=== PATIENT | female | born 1950 | race Caucasian/White ===

== ENCOUNTER 2025-08-27 07:08 | Observation (INO) ==
--- NOTE | 2025-08-27 07:50 | DR.EXTPAIN ---
HPI <Sachin Mane - Last Filed: 08/27/25 08:02> Time seen Time Seen by Provider: 08/27/25 07:47 Complaint/Symptoms Chief Complaint Doctor Comments: This patient states she was reaching down to her dog and was trying to put the leash on surgical walker and she got kind dizzy and she lost her balance fell backwards now she complained of head neck and right pelvic pain which radiated down to the right leg. She denied loss of consciousness. She did do this yesterday about 7 PM and presented here this morning. COVID-19 Coronavirus risk:travel/contact w/high risk person: No Has patient experienced Coronavirus symptoms: No PMH <Sachin Mane - Last Filed: 08/27/25 08:02> PMH Past Medical History: GERD Past Surgical History: Yes Surgical History: Appendectomy, Cholecystectomy and Tonsillectomy Social History Do you use any recreational Drugs:: No Travel Risk Coronavirus risk:travel/contact w/high risk person: No Has patient experienced Coronavirus symptoms: No ROS <Sachin Mane - Last Filed: 08/27/25 08:02> Review of Systems Constitutional: Other (pain in head ,neck and r hip after a fall yesterday) Eyes: No Symptoms Reported ENTM: No Symptoms Reported Respiratoy: No Symptoms Reported Cardiovascular: No Symptoms Reported Gastrointestinal/Abdominal: No Symptoms Reported Genitourinary: No Symptoms Reported Neurological: Headache Musculoskeletal: Neck Pain and Right (hip pain) Integumentary: No Symptoms Reported Hematologic/Lymphatic: No Symptoms Reported Endocrine: No Symptoms Reported Psychiatric: No Symptoms Reported All Other Systems: Reviewed and Negative PE <Sachin Mane - Last Filed: 08/27/25 08:02> Vital Signs Vitals: Vital Signs Temperature 98.6 F Pulse Rate 67 Pulse Rate 74 Respiratory Rate 16 Respiratory Rate 16 Blood Pressure 143/63 Blood Pressure 130/60 O2 Sat by Pulse Oximetry 95 O2 Sat by Pulse Oximetry 95 General Limitations: Physical Limitation (due to r hip and upper leg pain) General Appearance: In Distress (mild distress) Head Head Exam: Normal Inspection Eyes Eye exam: Normal Appearance ENT ENT Exam: Normal Exam Neck Neck Exam: Normal Inspection, Trachea Midline and Tenderness (pericervical area) Respiratory Respiratory Exam: Normal Lung Sounds Bilat Cardiovascular Cardiovascular Exam: Regular Rate and Normal Rhythm Abdominal Exam Abdominal Exam: Normal Inspection Extremities Extremities Exam: Normal Inspection and Tenderness (r upper leg.hip) Upper Extremities Shoulder Exam: Normal Inspection Arm Exam: Normal Inspection Elbow Exam: Normal Inspection Forearm Exam: Normal Inspection Hand Exam: Normal Inspection Lower Extremities Hip/Pelvis Exam: Normal Inspection and Tenderness (r hip) Upper Leg Exam: Normal Inspection and Tenderness (r upper leg at femoral head) Knee Exam: Normal Inspection Lower Leg Exam: Normal Inspection Ankle Exam: Normal Inspection Foot/Toe Exam: Normal Inspection Gait Exam: Not Tested/Not Observed Back Back Exam: Normal Inspection Neurological Neurological Exam: Alert and Oriented X3 Psychiatric Psychiatric Exam: Normal Affect <Calos Davila - Last Filed: 08/27/25 10:24> Vital Signs Vitals: Vital Signs Temperature 98.6 F Pulse Rate 67 Pulse Rate 74 Respiratory Rate 16 Respiratory Rate 16 Blood Pressure 143/63 Blood Pressure 130/60 O2 Sat by Pulse Oximetry 95 O2 Sat by Pulse Oximetry 95 MDM <Sachin [place] - Last Filed: 08/27/25 08:02> Differential Diagnosis Differential Diagnosis: Contusion (head), Fracture (c-spine.r hip) and Sprain (c-spine) COURSE <Sachin Mane - Last Filed: 08/27/25 08:02> Treatment Treatment: Patient remained stable during the ER initial evaluation. We did do a CT scan of the head and neck and pelvics area and the results were not back at time was to be relieved by Dr. Davila. This patient was signed out to Dr. Davila at further evaluation and treatment. She has recently been having some adjustment on her blood pressure medication so she feels that her dizziness when she bent over to put the lease on her dog to walk. Because her blood pressure dropped and she lost her balance. This patient was signed out to Dr. Davila at 8 AM. <Calos Davila - Last Filed: 08/27/25 10:24> Treatment Treatment: Patient remained stable during the ER initial evaluation. We did do a CT scan of the head and neck and pelvics area and the results were not back at time was to be relieved by Dr. Davila. This patient was signed out to Dr. Davila at further evaluation and treatment. She has recently been having some adjustment on her blood pressure medication so she feels that her dizziness when she bent over to put the lease on her dog to walk. Because her blood pressure dropped and she lost her balance. This patient was signed out to Dr. Davila at 8 AM. 0800 as above physical exam unchanged IMPRESSION: Minimally displaced right superior and inferior pubic ramus fractures. CT IMPRESSION: 1. Minimally displaced right superior and inferior pubic ramus fractures. 2. Nondisplaced right sacral ala fracture. Ortho Dr. Kayla johnson for consult evaluation Discussed with Dr. Garza states this is a nonsurgical injury and can be admitted to [facility] for observation and rehab Discussed with Dr. Parr will admit Opioid <Sachin Mane - Last Filed: 08/27/25 08:02> Opioid Risk Tool Age ([place] if 16-45): No History of Preadolescent Sexual Abuse: No Total: 0 Total Score Risk Category: Low Risk Copyright: Sergio PEREZ predicting aberrant behaviors <Calos Davila - Last Filed: 08/27/25 10:24> Opioid Risk Tool Total: 0 Total Score Risk Category: Low Risk Discharge Plan Diagnosis Discharge Problem: Fall, Pubic ramus fracture Discharge Plan Patient Disposition: 09 ADMITTED INPATIENT Condition: Stable Prescriptions: No Action latanoprost 0.005 % drops 1 drp OPHTHALMIC (EYE) QPM omeprazole 40 mg capsule,delayed release(DR/EC) 40 mg PO QDAY colesevelam 625 mg tablet 1,250 mg PO BID escitalopram oxalate 5 mg tablet 5 mg PO DAILY butalbital-acetaminophen 50-325 mg tablet 1 - 2 tab PO BID PRN (Reason: headache) metoprolol succinate 25 mg tablet extended release 24 hr 12.5 mg PO QDAY Health Concerns: Post Hospitalization: new medications and changes needed to prevent readmission or further decline. Pt educated and given instructions on all concerns. Plan of Treatment: Continue with present treatment and follow up plan. Pt is to keep follow up appointment as instructed and take medications as ordered. Orders to Discharge Patient Discharge Orders: Transfer (Routine); Ordered 08/27/25 Ordered By: Calos Davila Follow ups/Referrals Follow ups/Referrals: KAY GILBERT [Primary Care Provider, Unknown] - 3 days Instructions Print Language: SERBIAN
--- NOTE | 2025-08-27 08:31 | CT ---
EXAM: CT HEAD WITHOUT CONTRAST HISTORY: fall, hit head, neck pain; Pt into ED via with c/o neck pain, right hip, right thigh and right leg pain d/t falling last night around 7pm at home. She states she fell backward, hitting the back of her head, her right hip and "twisted my thigh". Pain in hip radiates around laterally to medially into groin and down inner thigh and down to lower right leg. She states she is unable to bear weight on right leg, pain is 10/10 when she tries to stand; states pain is better when she is sitting. Pt denies LOC when she hit her head, no bleeding to head. Pt states her head isn't sore, but her neck is "very sore" with movement. COMPARISON: CT dated 07/10/2025. TECHNIQUE: Axial CT images were obtained through the brain without contrast. All CT scans at this facility use dose modulation, iterative reconstruction, and/or weight based dosing when appropriate to reduce radiation dose to as low as reasonably achievable. FINDINGS: No acute intracranial hemorrhage or extra-axial fluid collection. No mass effect or midline shift. No regional areas of pratt-white differentiation loss. Mild cerebral atrophy and chronic microvascular white matter disease. No hydrocephalus. Intact calvarium. Visualized paranasal sinuses and mastoid air cells are well-aerated. IMPRESSION: No acute intracranial findings. THIS IS AN ELECTRONICALLY VERIFIED FINAL REPORT 08/27/2025 8:28 AM - Electronically signed by Jerardo Cabrera MD
--- NOTE | 2025-08-27 08:33 | CT ---
EXAM: CT CERVICAL SPINE WITHOUT CONTRAST HISTORY: fall, hit head, neck pain; Pt into ED via WC with c/o neck pain, right hip, right thigh and right leg pain d/t falling last night around 7pm at home. She states she fell backward, hitting the back of her head, her right hip and "twisted my thigh". Pain in hip radiates around laterally to medially into groin and down inner thigh and down to lower right leg. She states she is unable to bear weight on right leg, pain is 10/10 when she tries to stand; states pain is better when she is sitting. Pt denies LOC when she hit her head, no bleeding to head. Pt states her head isn't sore, but her neck is "very sore" with movement. COMPARISON: None. TECHNIQUE: Axial CT images were obtained through the cervical spine without contrast. All CT scans at this facility use dose modulation, iterative reconstruction, and/or weight based dosing when appropriate to reduce radiation dose to as low as reasonably achievable. FINDINGS: No acute cervical spine fracture or subluxation. Mild multilevel degenerative disc disease and facet hypertrophy. No CT evidence of spinal canal stenosis. Prevertebral soft tissues are within normal limits. No acute findings in the soft tissues of the neck. Biapical subpleural lung scarring. IMPRESSION: No acute cervical spine fracture or subluxation. THIS IS AN ELECTRONICALLY VERIFIED FINAL REPORT 08/27/2025 8:30 AM - Electronically signed by Jerardo Cabrera MD
--- NOTE | 2025-08-27 08:36 | CT ---
EXAM: CT PELVIS WITHOUT IV CONTRAST HISTORY: fall, right hip/leg pain, R leg lengthening; Pt into ED via WC with c/o neck pain, right hip, right thigh and right leg pain d/t falling last night around 7pm at home. She states she fell backward, hitting the back of her head, her right hip and "twisted my thigh". Pain in hip radiates around laterally to medially into groin and down inner thigh and down to lower right leg. She states she is unable to bear weight on right leg, pain is 10/10 when she tries to stand; states pain is better when she is sitting. Pt denies LOC when she hit her head, no bleeding to head. Pt states her head isn't sore, but her neck is "very sore" with movement. COMPARISON: CT abdomen/pelvis dated 01/17/2025 TECHNIQUE: Axial CT images were obtained through the pelvis without IV contrast. Coronal and sagittal reformatted images were included. All CT scans at this facility use dose modulation, iterative reconstruction, and/or weight based dosing when appropriate to reduce radiation dose to as low as reasonably achievable. FINDINGS: Minimally displaced right inferior pubic ramus fracture. Minimally displaced right superior pubic ramus fracture near the right pubic root. Nondisplaced right sacral ala fracture. Symmetric sacroiliac joints. Osteopenia. No evidence of proximal femur fracture. Normal right and left hip alignment without significant effusion. External muscle and tendon contours are unremarkable. No evidence of hematoma. No acute intrapelvic findings. No free pelvic fluid. Moderate sigmoid colon diverticula. Simple fluid density right renal cyst. IMPRESSION: 1. Minimally displaced right superior and inferior pubic ramus fractures. 2. Nondisplaced right sacral ala fracture. THIS IS AN ELECTRONICALLY VERIFIED FINAL REPORT 08/27/2025 8:33 AM - Electronically signed by Jerardo Cabrera MD
--- NOTE | 2025-08-27 08:37 | RAD ---
EXAM: HIP, RIGHT HISTORY: fall, right hip/leg pain, leg lengthening; Pt into ED via with c/o neck pain, right hip, right thigh and right leg pain d/t falling last night around 7pm at home. She states she fell backward, hitting the back of her head, her right hip and "twisted my thigh". Pain in hip radiates around laterally to medially into groin and down inner thigh and down to lower right leg. She states she is unable to bear weight on right leg, pain is 10/10 when she tries to stand; states pain is better when she is sitting. Pt denies LOC when she hit her head, no bleeding to head. Pt states her head isn't sore, but her neck is "very sore" with movement. COMPARISON: CT from same date TECHNIQUE: 2 views FINDINGS: Minimally displaced right superior and inferior pubic ramus fractures. No evidence of proximal femur fracture. Unremarkable soft tissues. IMPRESSION: Minimally displaced right superior and inferior pubic ramus fractures. THIS IS AN ELECTRONICALLY VERIFIED FINAL REPORT 08/27/2025 8:34 AM - Electronically signed by Jerardo Cabrera MD
--- NOTE | 2025-08-27 08:38 | RAD ---
EXAM: FEMUR, RIGHT HISTORY: fall, right hip/leg pain, leg lengthening; Pt into ED via with c/o neck pain, right hip, right thigh and right leg pain d/t falling last night around 7pm at home. She states she fell backward, hitting the back of her head, her right hip and "twisted my thigh". Pain in hip radiates around laterally to medially into groin and down inner thigh and down to lower right leg. She states she is unable to bear weight on right leg, pain is 10/10 when she tries to stand; states pain is better when she is sitting. Pt denies LOC when she hit her head, no bleeding to head. Pt states her head isn't sore, but her neck is "very sore" with movement. COMPARISON: Pelvic radiographs and CT from same date TECHNIQUE: 2 views FINDINGS: Minimally displaced right superior and inferior pubic ramus fractures. No evidence of femur fracture. No significant knee effusion. No radiopaque foreign bodies. IMPRESSION: No evidence of femur fracture. Minimally displaced right superior and inferior pubic ramus fractures. THIS IS AN ELECTRONICALLY VERIFIED FINAL REPORT 08/27/2025 8:35 AM - Electronically signed by Jerardo Cabrera MD
[2025-08-27 10:40] LABS: MEAN PLATELET VOLUME 7.4 fL (7.4-11.0); RED CELL DISTRIBUTION WIDTH 13.4 % (11.6-16.5)
[2025-08-27 10:44] LABS: CREATININE 0.48 mg/dL (0.55-1.02); eGFR NON BLACK RACES > 60 (>60)
[2025-08-27 14:08] VITALS: BMI 13.2
[2025-08-27] MEDS ORDERED: DILAUDID INJ IVP PRN (14:14)
[2025-08-27] MEDS: LEXAPRO PO SCH (20:25)
[2025-08-27] MEDS: NORCO 10/325 TAB PO PRN (20:26)
[2025-08-27] MEDS: WELCHOL PO SCH (20:29)
[2025-08-27] MEDS: LEXAPRO ONE (20:45)
[2025-08-27] MEDS ORDERED: WELCHOL PO SCH (21:00)
[2025-08-28 07:30] LABS: MEAN PLATELET VOLUME 7.9 fL (7.4-11.0); RED CELL DISTRIBUTION WIDTH 13.7 % (11.6-16.5)
[2025-08-28 07:39] LABS: CREATININE 0.51 mg/dL (0.55-1.02); eGFR NON BLACK RACES > 60 (>60)
[2025-08-28 08:00] LABS: COR CA(FOR HYPOALB) 9.2 mg/dL (8.5-10.1)
[2025-08-28] MEDS: TOPROL XL PO SCH (08:13)
[2025-08-28 08:16] VITALS: RESP 18
[2025-08-28] MEDS ORDERED: LEXAPRO PO SCH (09:00)
[2025-08-28] MEDS: RHINOCORT ALLERGY NASAL SPRAY ENOSTRIL SCH (11:14)
[2025-08-28 12:04] VITALS: BP 134/63; PULSE 59; TEMP 97.7; O2SAT 93
== END 2025-08-28 13:35 | disposition home or self-care (01) ==
LOC: U 07:08 → ER 07:08 → U 12:36 → MED/SURG 12:44
PROVIDERS: ADMIT Obstetrics & Gynecology Obstetrics; ATTEND Obstetrics & Gynecology Obstetrics
DX: R42 Dizziness and giddiness; Z79.899 Other long term (current) drug therapy; S32.591A Other specified fracture of right pubis, initial encounter for closed fracture; S09.8XXA Other specified injuries of head, initial encounter; S32.19XA Other fracture of sacrum, initial encounter for closed fracture; E83.42 Hypomagnesemia; Y92.9 Unspecified place or not applicable; I10 Essential (primary) hypertension; Z59.868 Other specified financial insecurity; R79.89 Other specified abnormal findings of blood chemistry; K21.9 Gastro-esophageal reflux disease without esophagitis; J30.9 Allergic rhinitis, unspecified; M79.604 Pain in right leg; F41.8 Other specified anxiety disorders; M54.2 Cervicalgia; W18.39XA Other fall on same level, initial encounter